=== PATIENT | female | born 1985 | race Caucasian/White ===

== ENCOUNTER 2020-02-21 10:22 | Emergency (ER) | payer OTHER ==
[~2020-02-21] VITALS: Ht 160 cm; Wt 75.0 kg
[2020-02-21 10:27] VITALS: Ht 160 cm; Wt 75.0 kg
[2020-02-21] MEDS ORDERED: HYDROCODON-ACE1 EAC2 PO (10:53)
[2020-02-21] MEDS ORDERED: HYDROCORTISONE30 G9 TOPICAL (10:53)
[2020-02-21 11:32] VITALS: BP 132/92
== END 2020-02-21 11:33 | disposition home or self-care (01) ==
LOC: D.ER 10:22
DX: K60.2 Anal fissure, unspecified (principal); K64.8 Other hemorrhoids; I10 Essential (primary) hypertension

== ENCOUNTER 2020-03-08 09:50 | Day surgery (SDC) | payer OTHER ==
[2020-03-07 14:16] LABS: HEMOGLOBIN 17.1 g/dL (12-16); MCH 32.1 pg (26.0-34.0); MCHC 34.2 g/dL (31.0-37.0); MEAN PLATELET VOLUME 11.6 fL (7.4-10.4); RBC 5.32 10x6/uL (4.00-5.40); RDW 12.5 % (11.5-14.5); WBC 8.7 10x3/uL (4.8-10.8)
[~2020-03-08] VITALS: Ht 160 cm; Wt 77.6 kg
[~2020-03-08 09:50] MED LIST: HYDROCHLOROTHIA25 MG PO; HYDROCODON-ACE1 EAC2 PO; HYDROCORTISONE30 G9 TOPICAL; LISINOPRIL40 MG PO; VALIUM10 MG PO
[2020-03-08 10:42] VITALS: BP 119/74; Ht 160 cm; Wt 77.6 kg
--- NOTE | 2020-03-08 12:39 | NUR ---
1215-PATIENT UPDATED DR SMITH IN SURGERY AND WILL BE CLOSE TO AN HOUR BEFORE SHE GOES TO SURGERY. PATIENT BECOMES IRRATE. OFFERRED VALIUM AND PAIN MEDICINE. WANTS TO GO HOME. DEMANDS IV BE REMOVED AND SHE GO HOME. 1230-IV D/C AND PATIENT LEAVES WITH INSTRUCTIONS TO CALL DR JAY OFFICE.
== END 2020-03-08 12:30 | disposition home or self-care (01) ==
LOC: D.PAN 09:50 → D.OPS 11:45 → D.PAN 12:30
PROVIDERS: Anesthesiology; ATTEND Surgery
DX: K60.2 Anal fissure, unspecified (principal); K64.9 Unspecified hemorrhoids; Z53.21 Procedure and treatment not carried out due to patient leaving prior to being seen by health care provider

== ENCOUNTER 2020-03-11 05:36 | Day surgery (SDC) | payer OTHER ==
[~2020-03-11] VITALS: Ht 160 cm; Wt 77.6 kg
--- NOTE | ~2020-03-11 | OP ---
PATIENT NAME: MEDARDO DURÁN MEDICAL RECORD: [id number] LOCATION:D.OPS ADMISSION DATE: SURGEON: EBONY SMITH MD DATE OF OPERATION: 03/11/2020 PREOPERATIVE DIAGNOSES: 1. Acute anal fissure. 2. Internal hemorrhoids. POSTOPERATIVE DIAGNOSES: 1. Acute anal fissure. 2. Internal hemorrhoids. PROCEDURES: 1. Anal exam under anesthesia. 2. Lateral internal sphincterotomy. 3. Hemorrhoid banding of right posterior and left lateral hemorrhoid. SURGEON: Ebony Smith MD REPORT OF PROCEDURE: The patient was placed in lithotomy position and a Hill-Brewer anoscope was inserted and we did a 360 degree inspection. The patient had a small anal fissure posteriorly. The patient's internal sphincter was very firm and spasm. We were able to feel this clearly along with the external sphincter. I then made an opening on the patient's left side and performed a closed internal sphincterotomy. There was some bleeding at the conclusion of this and most of this stopped with the installation of pressure to the area. We then inspected and could see the patient had some internal hemorrhoids that were extending in the external and a few spots. The largest were on the left lateral and right posterior. Hemorrhoid bands were placed on both of these columns and there was noted to be a good collection of tissue present at the end of these. We then irrigated out the rectum with normal saline. A piece of Gelfoam dipped in [place] was then placed into the rectum. COMPLICATIONS: None. CONDITION: Stable. ANESTHESIA: General endotracheal. BLOOD LOSS: 30 mL. TRANSINT:[id number] Voice Confirmation ID: [id number] DOCUMENT ID: [id number] EBONY SMITH MD CC: [id number] DICTATION DATE: 03/11/20 1018 FORM SETTER: 03/11/20 1858 [facility] 03/11/20 [id number] [place] [address]
[2020-03-11 07:59] VITALS: BP 101/54; Ht 160 cm; Wt 77.6 kg
[2020-03-11 09:08] LABS: HCG URINE NEGATIVE (NEGATIVE)
[2020-03-11] MEDS ORDERED: HYDROCODON-ACE1 EA10 PO (10:15)
--- NOTE | 2020-03-11 18:37 | NUR ---
1055 ARRIVED TO ROOM DROWSEY AND TALKATIVE, AT BEDSIDE. LYING ON RIGHT SIDE. DENIES PAIN AT THIS TIME. REQUESTED SOME COKE AND WATER. ORDERS NOTED. SCANT AMT OF BLOOD ON DRESSING. VS STABLE 1155 MEDICATED FOR PAIN 1200 IV REMOVED AND INSTRUCTIONS GIVEN. 1210 D/C HOME
== END 2020-03-11 12:10 | disposition home or self-care (01) ==
LOC: D.OPS 05:36
PROVIDERS: ATTEND Surgery
DX: K60.2 Anal fissure, unspecified (principal); K64.8 Other hemorrhoids; J45.909 Unspecified asthma, uncomplicated; Z72.0 Tobacco use